=== PATIENT | male | born 1970 | race Hispanic/Latino ===

== ENCOUNTER 2021-07-10 08:27 | Outpatient (CLI) | payer OTHER ==
--- NOTE | 2021-07-10 09:30 | XRay Report ---
CHEST 2 VIEWS INDICATION: RULE OUT ACTIVE TB DISEASE. COMPARISON: none FINDINGS: Support devices: None. Heart: Within normal limits. Lungs/pleura: No acute air space or interstitial disease. No pneumothorax. Additional findings: None. IMPRESSION: No acute findings. No evidence for tuberculosis in the chest. Signer Name: Migue Munson Jr, MD Signed: 07/10/2021 9:26 AM Workstation Name: [id number]
== END 2021-07-10 08:28 | disposition home or self-care (01) ==
LOC: XRAY 08:27 → EDSTATUS 08:28
PROVIDERS: ATTEND Psychiatry & Neurology Psychiatry
DX: A15.9 Respiratory tuberculosis unspecified (principal)
CPT/HCPCS: 71046